=== PATIENT | female | born 1975 | race Caucasian/White ===

== ENCOUNTER 2020-11-25 02:31 | Day surgery (SDC) | payer BC, SELFPAY ==
[2020-11-18 09:58] VITALS: BMI 46.8
--- NOTE | 2020-11-24 06:26 | PM.HPGS ---
History of Present Illness History of Present Illness Consent: Risks, benefits, and alternatives have been discussed and questions answered. Patient agrees to proceed with procedure. Chief complaint: tonsilar hypertrophy Narrative: Mary Lindquist is a 45 year old female with markedly enlarged tonsils snores mouth breathes difficulty sleepi Review of Systems Review of Systems: All systems reviewed & are unremarkable except as noted in HPI and below PMFSH Social History Social History Smoking status: Never smoker Alcohol intake: current Drinks per week: 5 Substance use: never Substance use type: does not use Living arrangements: with family Additional living arrangements comments: WITH CHILDREN Spiritual care concerns: No Meds Home Medications and Allergies Home Medications Medication Instructions Recorded Confirmed Type No Home Medications 11/18/20 11/18/20 History Allergies Allergy/AdvReac Type Severity Reaction Status Date / Time Cephalosporins Allergy Mild HIVES AND Verified 11/18/20 09:57 JOINT SWELLING Exam Narrative: chest clear heart rhythm murmurs abdomen soft extremities -3+ tonsils with obstruction
[2020-11-25] VITALS (8 sets, daily range): BP systolic 103–130; BP diastolic 59–83; PULSE 71–97; RESP 10–16; TEMP 36.2–36.7; O2SAT 98–100; BMI 52.1
--- NOTE | 2020-11-25 05:55 | WPDHPUPDATE1 ---
History and Physical Update Update Date/Time: 11/25/20 05:55 History and Physical has been reviewed, including an updated exam of the patient. There are NO changes in the patient's condition. Risks, benefits, and alternatives have been discussed and questions answered. Patient agrees to proceed with procedure.
[2020-11-25] MEDS: ACETAMINOPHEN 500 MG TABLET 1000 MG PO (07:54)
[2020-11-25] MEDS: LACTATED RINGERS 1,000 ML 30 ML IV CONT ×2 (08:05→10:31)
--- NOTE | 2020-11-25 08:37 | P.PNAN_ITS ---
Anes - Initial Pre Proc Eval Procedure: Operation Date: 11/25/20 09:15 Proposed Procedures p Tonsillectomy - Pete Hall MD Date/Time: 11/25/20 08:37 Surgeon: Pete Hall MD Pre Op Diagnosis: tonsilar hypertrophy Patient Data Age: 45 Gender: F Height: 1.52 m Weight: 108.86 kg Last Vital Signs Temp 36.2 C L 11/25/20 07:11 Pulse 89 11/25/20 07:11 Resp 16 11/25/20 07:11 BP 129/83 11/25/20 07:11 Pulse Ox 98 11/25/20 07:11 Allergies Allergy/AdvReac Type Severity Reaction Status Date / Time Cephalosporins Allergy Mild HIVES AND Verified 11/25/20 07:54 JOINT SWELLING Home Medications Medication Instructions Recorded Confirmed Type No Home Medications 11/18/20 11/25/20 History Patient hx anesthesia problems: none Family hx anesthesia problems: none Results Review: All pre-operative results and documents have been reviewed as part of the pre-operative evaluation. [facility] Past Medical History Medical History (Updated 11/25/20 @ 08:37 by Elvin Mills MD) Graves disease Morbid obesity Social History Social History Smoking status: Never smoker Alcohol intake: current Drinks per week: 5 Substance use: never Substance use type: does not use Living arrangements: with family Additional living arrangements comments: WITH CHILDREN Spiritual care concerns: No Anes - Eval Final PreProcedure Day of Procedure 11/25/20 08:37 Patient weight: morbidly obese Heart: regular rate and rhythm Lungs: clear to auscultation Airway: Mallampati scale class II Neurological: alert and oriented Last oral intake: >/= 8 hours ASA classification: III Emergent: no Anesthetic plan: proceed Anesthesia type and monitoring: general ETT and standard monitoring Results Review: All pre-operative results and documents have been reviewed as part of the pre-operative evaluation. Informed Consent: The patient's anesthetic plan and its attendant risks and benefits were discussed with the patient/family/POA. Questions were solicited and answers provided to the satisfaction of the patient/family/POA.
--- NOTE | 2020-11-25 09:29 | W.PM.PROC2 ---
Procedure Note - Detailed Date of Procedure 11/25/20 Pre-op Diagnosis tonsilar hypertrophy Post-op Diagnosis same Procedure Performed Tonsillectomy Surgeon Pete Hall MD Anesthesia general Description of Procedure Patient was prepped and draped in usual fashion after induction of anesthesia. The McIvor mouth gag was inserted. The tonsils were removed dissection technique hemostasis was obtained electrocautery. The mouth was inspected for bleeding. When stabilized patient was awaken and brought to the recovery room in good condition. Drains No Packing No Pathology none sent Complications No immediate complications Condition stable Disposition PACU
[2020-11-25] MEDS: fentaNYL CITRATE INJ (*CRX) 100 MCG/2 ML VIAL 25 MCG IV PUSH ×3 (09:55→10:16)
[2020-11-25] MEDS: oxyCODONE HCL (*CRX) 5 MG TAB IR PO (10:55)
== END 2020-11-25 11:08 | disposition home or self-care (01) ==
PROVIDERS: PCP Family Medicine Sports Medicine; Visit Provider Otolaryngology
PROC: (CPT 42826; principal; 2020-11-25 09:15)
DX: J35.01 Chronic tonsillitis (principal); E66.01 Morbid (severe) obesity due to excess calories; Z68.43 Body mass index [BMI] 50.0-59.9, adult
CPT/HCPCS: 42826; 88304; A9270; J0330; J1100; J1170; J2250; J2405; J2704; J3010; J7120

== ENCOUNTER 2024-04-03 08:28 | Outpatient (CLI) | payer OTHER, SELFPAY ==
--- NOTE | ~2024-04-03 | MM_ITS ---
EXAMINATION: MM screening vineet BI w se HISTORY: Screening TECHNIQUE: Craniocaudal and mediolateral oblique 3-D tomosynthesis images were obtained and synthetic 2-D images were generated. CAD analysis was submitted and interpreted. COMPARISON: No prior mammogram is available for comparison at this institution. BREAST PARENCHYMAL COMPOSITION: Not Dense: The breasts are almost entirely fatty. FINDINGS: There is no evidence of suspicious mass, calcification, or architectural distortion to sugg est malignancy in either breast. There has been no suspicious interval change. IMPRESSION: 1. No mammographic evidence of malignancy. 2. Recommend routine screening mammography in one year. BI-RADS Category 1: Negative Reviewed, dictated and finalized at location B. ANCE LEARNING COORDINATOR
--- OUTSIDE RECORDS SUMMARY | 2024-04-03 08:39 | XMS_ITS | Referral Summary ---
Author Organization [facility] Address [address] [place] [address] Care Team Providers Care Data Examination Clerk Name Role Phone No, Physician Primary Care Provider [phone] Allergies Active Allergy Reactions Criticality Noted Date Comments Cefuroxime Other (See comments) Reaction: JOINT SWELLING, Medications No known medications Active Problems Problem Noted Date Diagnosed Date Posterior vitreous detachment, right eye 022 Assessment & Plan (11/03/2021 10:27 AM CDT): Chronic floater OD, but feels it is more bothersome. Attached to COMM[employer] HE[employer] NURSING DIRECTOR [address]U. Educated patient on return precautions- return immediately if any new or worsening floaters, flashes, or curtain/veil over vision. Otherwise return for repeat DFE in 6 weeks. Vitreous syneresis of both eyes 11/03/2021 Assessment & Plan (11/03/2021 10:28 AM CDT): See under PVD. High myopia, bilateral 11/03/2021 Assessment & Plan (11/03/2021 10:28 AM CDT): Tilted nerves, but no other signs of degenerative changes. Follow. 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 Gender Identity Not on file Sexual Orientation Not on file Last Filed Vital Signs Vital Sign Reading Time Taken Comments Blood Pressure 120/76 10/06/2017 3:04 PM CDT Pulse 90 10/06/2017 3:04 PM CDT Temperature 36.8 ??C (98.3 ??F) 10/06/2017 3:04 PM CD T Respiratory Rate - - Oxygen Saturation 97% 10/06/2017 3:04 PM CDT Inhaled Oxygen Concentration - - Weight 108.9 kg (240 lb) 10/06/2017 3:04 PM CDT Height 152.4 cm (5') 10/06/2017 3:04 PM CDT Body Mass Index 46.87 10/06/2017 3:04 PM CDT Plan of Treatment Not on file Insurance [facility] Care Teams Data Examination Clerk Relationship Specialty Start Date End Date No, Physician PCP - General 10/30/21
--- OUTSIDE RECORDS SUMMARY | 2024-04-03 08:39 | XMS_ITS | Clinical Summary ---
Author Organization [facility] Address [address] [place] [id number] Care Team Providers Care Judicial Administrative Assistant Name Role Phone No, Physician Primary Care Provider [phone] Allergies Active Allergy Reactions Criticality Noted Date Comments Cefuroxime Other (See comments) Reaction: JOINT SWELLING, Medications No known medications Active Problems Problem Noted Date Diagnosed Date Posterior vitreous detachment, right eye 022 Assessment & Plan (11/03/2021 10:27 AM CDT): Chronic floater OD, but feels it is more bothersome. 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 Gender Identity Not on file Sexual Orientation Not on file Obstetrics History Last Filed Vital Signs Vital Sign Reading [...] 10/06/2017 3:04 PM CDT Plan of Treatment Health Maintenance Due Date Last Done Comments Breast Cancer Screening-Mammogram 1977 Cervical Cancer Screening 1977 Colon Cancer Screening-Colonoscopy 1977 Depression Screening 1977 Hepatitis C Screening 1977 Hepatitis B Screening 08/08/1995 Regular Well Visit/Exam 18-64 08/08/1995 Covid-19 Vaccine ( season) 2023 02/25/2021, 05/08/2020 Influenza Vaccine (#1) 2023 9, 11/03/2017, 03/22/2017, Additional history exists DTaP/Tdap/Td Vaccine (3 - Td or Tdap) 05/16/2024 05/16/2014, 02/18/2013 HPV Vaccines Aged Out No longer eligi ble based on patient's age to complete this topic Pneumococcal vaccine <65 Aged Out No longer eligible based on patient's age to complete this topic Insurance [facility] Care Teams Judicial Administrative Assistant Relationship Specialty Start Date End Date No, Physician PCP - General 10/30/21
--- OUTSIDE RECORDS SUMMARY | 2024-04-03 08:39 | XMS_ITS | Clinical Summary ---
Author Organization [facility] Address [address] [place] [address]. 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 Gender Identity Not on file Sexual Orientation Not on file Plan of Treatment Health Maintenance Due Date Last Done Comments Cervical Cancer Screening Pap Smear (Age 30 to 64) Every 3 Years 1977 Colorectal Cancer Screening Colonoscopy (10 Years) 1977 Annual Physical 1980 Hepatitis C 08/08/1995 Hepatitis B Vaccines (1 of 3 - 19+ 3-dose series) 1996 Cervical Cancer Screening Pap with HPV Testing (Age 30 to 64) Every 5 Years 08/08/2007 Cervical Cancer Screening with HPV 08/08/2007 Mammogram Screening 2017 COVID-19 Vaccine ( season) 2023 02/25/2021, 05/08/2020 Influenza Adult (#1) 2023 12/22/2018, 11/03/2017, 03/22/2017, Additional history exists DTaP, Tdap and Td Vaccines (3 - Td or Tdap) 05/16/2024 05/16/2014, 02/18/2013 Meningococcal B Vaccine Aged Out No l onger eligible based on patient's age to complete this topic Meningococcal Vaccine Aged Out No brittani shanelle eligible based on patient's age to complete this topic Pneumococcal Vaccine: Pediatrics (0 to 5 Years) and At-Risk Patients (6 to 64 Years) Aged Out No longer eligible based on patient's age to complete this topic RSV Immunizations Under 20 Months Aged Out No longer eligible based on patient's age to complete this topic Insurance [facility] Care Teams Hardware Installer Relationship Specialty Start Date End Date Jimi Segura MD [address] [place] [id number] PCP - General [facility] 04/07/22
== END 2024-04-03 08:29 | disposition home or self-care (01) ==
PROVIDERS: PCP Family Medicine Sports Medicine; Visit Provider Obstetrics & Gynecology
DX: Z12.31 Encounter for screening mammogram for malignant neoplasm of breast (principal)
CPT/HCPCS: 77063; 77067